=== PATIENT | female | born 1935 | race Caucasian/White ===

== ENCOUNTER 2018-08-17 07:48 | Inpatient (IN) | payer MEDICARE, BC ==
[~2018-08-17 07:48] MED LIST: CEFAZOLIN 2 GM/50 ML (PMX) 50 ML IVPB; LACTATED RINGER'S 1,000 ML IV*; TRANEXAMIC ACID 1,000 MG in DEXTROSE 5% 100 ML IVPB
[2018-08-17] MEDS ORDERED: PROPOFOL 20 ML (07:52)
[2018-08-17] MEDS ORDERED: CEFAZOLIN 1 GM INJ (07:52)
[2018-08-17] MEDS ORDERED: ROCURONIUM 50 MG INJ (07:52)
[2018-08-17] MEDS ORDERED: FENTAnyl 50 MCG/ML VIAL (07:53)
[2018-08-17] MEDS ORDERED: MIDAZOLAM 1 MG/ML 2 ML INJ (07:53)
[2018-08-17] MEDS ORDERED: ROPIVACAINE 0.5 % 30 ML VIAL (07:53)
[2018-08-17] MEDS ORDERED: ONDANSETRON 4 MG INJ (07:56)
[2018-08-17] MEDS ORDERED: ACETAMINOPHEN 1000MG/100ML IV 100 ML (07:56)
[2018-08-17] MEDS ORDERED: DEXAMETHASONE 4 MG/ML 1 ML INJ (07:56)
[2018-08-17] MEDS ORDERED: METOCLOPRAMIDE 10 MG INJ (07:56)
[2018-08-17] MEDS: DEXAMETHASONE 1 MG TAB PO (08:36)
[2018-08-17] MEDS ORDERED: THROMBIN 5000 UNIT VIAL (09:09)
[2018-08-17] MEDS ORDERED: CA CHLORIDE 10% 10 ML SYRINGE (09:09)
[2018-08-17] MEDS ORDERED: BUPIVACAINE 0.5%/EPI (SDV) 30 ML INJ (09:11)
[2018-08-17] MEDS ORDERED: PHENYLephrine (100 MCG/ML) 5ML SYG ×2 (10:11→11:29)
[2018-08-17] MEDS ORDERED: LABETALOL HCL 20MG INJ (10:20)
[2018-08-17] MEDS ORDERED: NEOSTIGMINE 3 MG/3 ML SYRINGE (10:47)
[2018-08-17] MEDS ORDERED: GLYCOPYRROLATE 0.4 MG INJ (10:47)
[2018-08-17] MEDS ORDERED: FENTAnyl 50 MCG/ML VIAL IV ×2 (11:00)
[2018-08-17] MEDS ORDERED: METOCLOPRAMIDE 10 MG INJ IV (11:00)
[2018-08-17] MEDS ORDERED: OXYCODONE/ACETAMINOPHEN (5/325) TAB PO (11:00)
[2018-08-17] MEDS ORDERED: HYDROmorphONE 1 MG/5 ML IV SYRINGE IV ×2 (11:00)
[2018-08-17] MEDS ORDERED: hydrALAzine 20 MG INJ IV (11:00)
[2018-08-17] MEDS ORDERED: MEPERIDINE 25 MG INJ IV (11:00)
[2018-08-17] MEDS ORDERED: DIPHENHYDRAMINE 50 MG INJ IV ×2 (11:00→11:30)
[2018-08-17] MEDS ORDERED: LABETALOL HCL 20MG INJ IV (11:00)
[2018-08-17] MEDS ORDERED: EPHEDrine SULFATE 50 MG/5 ML SYG IV (11:00)
[2018-08-17] MEDS ORDERED: ONDANSETRON 4 MG INJ IV ×2 (11:00→11:30)
[2018-08-17] MEDS: BUPIVACAINE 0.5% (SDV) 30 ML, EPINEPHrine 0.3 MG, KETOROLAC 30 MG, CLONIDINE 100 MCG, S... IRR (11:10)
[2018-08-17] MEDS: POLYMYXIN/BACITRACIN 1L IRRIG IRR (11:10)
[2018-08-17] MEDS ORDERED: KETOROLAC 15 MG INJ IV (11:30)
[2018-08-17] MEDS ORDERED: ACETAMINOPHEN 500 MG TAB PO ×2 (11:30)
[2018-08-17] MEDS ORDERED: MAGNESIUM HYDROXIDE 30ML CUP PO (11:30)
[2018-08-17] MEDS: TRANEXAMIC ACID 1,000 MG in DEXTROSE 5% 100 ML IV (12:37)
[2018-08-17] MEDS: DEXAMETHASONE 2 MG TAB PO ×2 (14:00→17:50)
[2018-08-17] MEDS: CEFAZOLIN 1 GM/50 ML (PMX) 50 ML IVPB (17:50)
[2018-08-17] MEDS: APIXABAN 5 MG TABLET PO (20:54)
[2018-08-17] MEDS: METOPROLOL (XL) 25 MG TAB PO (20:55)
[2018-08-17] MEDS: MIRTAZAPINE 15 MG TAB PO (20:55)
[2018-08-17] MEDS: PANTOPRAZOLE (EC) 40 MG TAB PO (20:55)
[2018-08-17] MEDS: RANITIDINE 150 MG TAB PO (20:55)
[2018-08-17] MEDS: SENNA/DOCUSATE NA (8.6MG/50MG) TAB PO (20:55)
[2018-08-17] MEDS: CEPASTAT LOZENGE MT (20:56)
[2018-08-17] MEDS: [UNRECOGNIZED DRUG - REMARK] XX (21:00)
[2018-08-18] MEDS: CEFAZOLIN 1 GM/50 ML (PMX) 50 ML IVPB ×2 (02:05→10:40)
[2018-08-18] MEDS: OXYCODONE/ACETAMINOPHEN (5/325) TAB PO (04:34)
[2018-08-18] MEDS: DEXAMETHASONE 2 MG TAB PO ×2 (06:00)
[2018-08-18] MEDS: LEVOTHYROXINE 125 MCG TAB PO (06:18)
[2018-08-18] MEDS ORDERED: NON-FORMULARY/PATIENT OWN MED (Naloxegol Oxalate (Movantik) 25 MG) PO (07:00)
[2018-08-18] MEDS ORDERED: NON-FORMULARY/PATIENT OWN MED (Esomeprazole Mag Trihydrate (Nexium) 40 MG) PO (09:00)
[2018-08-18] MEDS: APIXABAN 5 MG TABLET PO (09:27)
[2018-08-18] MEDS: ASPIRIN 81 MG TAB PO (09:27)
[2018-08-18] MEDS: SENNA/DOCUSATE NA (8.6MG/50MG) TAB PO (09:27)
[2018-08-18] MEDS: METOPROLOL (XL) 25 MG TAB PO (09:27)
[2018-08-18] MEDS: PANTOPRAZOLE (EC) 40 MG TAB PO (09:27)
== END 2018-08-18 13:13 | disposition home or self-care (01) | DRG 483 ==
LOC: REC 07:48 → MS1 13:41
PROC: 0RRK0J6 Replacement of Left Shoulder Joint with Synthetic Substitute, Humeral Surface, Open Approach (ICD-10-PCS; principal; 2018-08-17 09:30)
DX: M19.212 Secondary osteoarthritis, left shoulder (principal); M75.102 Unspecified rotator cuff tear or rupture of left shoulder, not specified as traumatic; E03.9 Hypothyroidism, unspecified
CPT/HCPCS: 73030; 86999; 88304; 88311; 97166

== ENCOUNTER 2018-12-08 14:58 | Inpatient (IN) | payer MEDICARE, BC ==
[2018-12-08] MEDS: SOD CHLORIDE 0.9% 1,000 ML IV (18:42)
[2018-12-08] MEDS: KETOROLAC 15 MG INJ IV (18:42)
[2018-12-08 18:49] LABS: ADD MAN DIFF? NO
[2018-12-08 18:52] LABS: WHITE BLOOD COUNT 10.5 10^3/ul (4.8-10.8)
[2018-12-08 18:52] LABS: ABNORMAL IP MESSAGE 1; BASOPHILS % 0.3 % (0.0-2.0); EOSINOPHILS % 0.1 % (0.0-7.0); HEMATOCRIT 35.6 % (37.0-47.0); HEMOGLOBIN 12.3 g/dl (12.0-16.0); LYMPHOCYTES # 0.2 10^3/ul (0.8-2.9); MEAN CORPUSCULAR HEMOGLOBIN 32.1 pg (29.0-33.0); MEAN CORPUSCULAR HGB CONC 34.6 g/dl (32.0-37.0); MEAN PLATELET VOLUME 10.5 fl (7.4-10.4); MONOCYTE # 0.8 10^3/ul (0.3-0.9); MONOCYTES % 7.8 % (0.0-11.0); NEUTROPHIL # 9.3 10^3/ul (1.6-7.5); NEUTROPHILS % 89.3 % (39.0-77.0); PLATELET COUNT 146 10^3/UL (140-415); RED BLOOD COUNT 3.83 10^6/ul (4.20-5.40); RED CELL DISTRIBUTION WIDTH 13.4 % (11.5-14.5)
[2018-12-08 19:09] LABS: INR 1.28; PROTIME 16.1 Sec (11.9-14.9); PT RATIO 1.3
[2018-12-08 19:10] LABS: PARTIAL THROMBOPLASTIN TIME 36.5 Sec (23.0-35.0)
[2018-12-08 19:13] LABS: ALANINE AMINOTRANSFERASE 41 IU/L (13-69); ALBUMIN 4.5 g/dl (3.3-4.9); ALBUMIN/GLOBULIN RATIO 1.66; ALKALINE PHOSPHATASE 174 IU/L (42-121); ANION GAP 8 (5-13); ASPARTATE AMINO TRANSFERASE 65 IU/L (15-46); BILIRUBIN,INDIRECT 1.5 mg/dl (0-1.1); BILIRUBIN,TOTAL 1.5 mg/dl (0.2-1.3); BLOOD UREA NITROGEN 17 mg/dl (7-20); CALCIUM 9.9 mg/dl (8.4-10.2); CARBON DIOXIDE 26 mmol/L (21-31); CHLORIDE 89 mmol/L (97-110); CREATININE 0.68 mg/dl (0.44-1.00); GLUCOSE 115 mg/dl (70-220); LIPASE 51 U/L (23-300); POTASSIUM 4.6 mmol/L (3.5-5.1); SODIUM 123 mmol/L (135-144); TOTAL PROTEIN 7.2 g/dl (6.1-8.1)
[2018-12-08 19:13] LABS: CREATINE KINASE 237 IU/L (23-200)
[2018-12-08 19:24] LABS: TROPONIN-I < 0.012 ng/ml (0.000-0.120)
[2018-12-08 19:48] LABS: ADD UMIC YES; UR ASCORBIC ACID NEGATIVE (NEGATIVE); UR BILIRUBIN (Dip) NEGATIVE (NEGATIVE); UR BLOOD (Dip) 1+ mg/dL (NEGATIVE); UR CLARITY CLEAR (CLEAR); UR COLOR YELLOW (YELLOW); UR GLUCOSE (Dip) NEGATIVE (NEGATIVE); UR KETONES (Dip) TRACE mg/dL (NEGATIVE); UR LEUKOCYTE ESTERASE (Dip) NEGATIVE Leu/ul (NEGATIVE); UR NITRITE (Dip) NEGATIVE (NEGATIVE); UR RBC 6 /HPF (0-5); UR SPECIFIC GRAVITY (Dip) 1.012 (1.003-1.030); UR TOTAL PROTEIN (Dip) NEGATIVE (NEGATIVE); UR UROBILINOGEN (Dip) NEGATIVE (NEGATIVE); UR WBC 0 /HPF (0-5)
[2018-12-08] MEDS ORDERED: ONDANSETRON 4 MG INJ IV (22:00)
[2018-12-08] MEDS ORDERED: ACETAMINOPHEN 500 MG TAB PO (22:00)
[2018-12-09 05:25] LABS: ADD MAN DIFF? NO
[2018-12-09 05:27] LABS: ABNORMAL IP MESSAGE 1; BASOPHILS % 0.3 % (0.0-2.0); EOSINOPHILS % 0.6 % (0.0-7.0); HEMATOCRIT 31.1 % (37.0-47.0); HEMOGLOBIN 10.9 g/dl (12.0-16.0); LYMPHOCYTES # 0.3 10^3/ul (0.8-2.9); LYMPHOCYTES % 4.4 % (15.0-51.0); MEAN CORPUSCULAR HEMOGLOBIN 32.5 pg (29.0-33.0); MEAN CORPUSCULAR VOLUME 92.8 fl (82.0-101.0); MEAN PLATELET VOLUME 11.7 fl (7.4-10.4); MONOCYTE # 0.7 10^3/ul (0.3-0.9); MONOCYTES % 9.7 % (0.0-11.0); NEUTROPHIL # 5.9 10^3/ul (1.6-7.5); NEUTROPHILS % 84.7 % (39.0-77.0); PLATELET COUNT 115 10^3/UL (140-415); RED BLOOD COUNT 3.35 10^6/ul (4.20-5.40); RED CELL DISTRIBUTION WIDTH 13.3 % (11.5-14.5)
[2018-12-09 05:29] LABS: POSITIVE DIFF @See below
[2018-12-09 06:04] LABS: ALANINE AMINOTRANSFERASE 26 IU/L (13-69); ALBUMIN 3.4 g/dl (3.3-4.9); ALBUMIN/GLOBULIN RATIO 1.47; ALKALINE PHOSPHATASE 126 IU/L (42-121); ANION GAP 7 (5-13); ASPARTATE AMINO TRANSFERASE 47 IU/L (15-46); BILIRUBIN,INDIRECT 1.3 mg/dl (0-1.1); BILIRUBIN,TOTAL 1.3 mg/dl (0.2-1.3); BLOOD UREA NITROGEN 21 mg/dl (7-20); CALCIUM 9.2 mg/dl (8.4-10.2); CARBON DIOXIDE 27 mmol/L (21-31); CHLORIDE 93 mmol/L (97-110); CREATININE 0.88 mg/dl (0.44-1.00); GLUCOSE 82 mg/dl (70-220); POTASSIUM 4.6 mmol/L (3.5-5.1); SODIUM 127 mmol/L (135-144); TOTAL PROTEIN 5.7 g/dl (6.1-8.1)
[2018-12-09] MEDS: LEVOTHYROXINE 125 MCG TAB PO (06:08)
[2018-12-09 06:44] LABS: THYROID STIMULATING HORMONE < 0.015 MIU/L (0.465-4.680)
[2018-12-09] MEDS: POLYETHYLENE GLYCOL 17 GM PACKET PO (09:00)
[2018-12-09] MEDS: MULTIVITAMINS THERAPEUTIC TAB PO (09:08)
[2018-12-09] MEDS: APIXABAN 5 MG TABLET PO ×2 (09:08→20:46)
[2018-12-09] MEDS: PANTOPRAZOLE (EC) 40 MG TAB PO (09:08)
[2018-12-09] MEDS: CHOLECALCIFEROL 1,000 UNIT TAB PO (09:08)
[2018-12-09] MEDS: DOCUSATE SODIUM 100 MG CAP PO ×2 (09:08→20:44)
[2018-12-09] MEDS: METOPROLOL (XL) 25 MG TAB PO ×2 (09:09→20:46)
[2018-12-09] MEDS: CYANOCOBALAMIN 500 MCG TAB PO (09:54)
[2018-12-09] MEDS: SOD CHLORIDE 0.9% 1,000 ML IV (15:50)
[2018-12-09] MEDS: MIRTAZAPINE 15 MG TAB PO (20:44)
[2018-12-10] MEDS: HYDROCODONE/APAP (5/325) TAB PO ×2 (01:50→09:53)
[2018-12-10] MEDS: SOD CHLORIDE 0.9% 1,000 ML IV ×2 (04:48→10:00)
[2018-12-10 05:09] LABS: ADD MAN DIFF? NO
[2018-12-10 05:20] LABS: WHITE BLOOD COUNT 7.8 10^3/ul (4.8-10.8)
[2018-12-10 05:20] LABS: ABNORMAL IP MESSAGE 1; BASOPHILS % 0.4 % (0.0-2.0); EOSINOPHILS # 0.1 10^3/ul (0.0-0.5); EOSINOPHILS % 1.4 % (0.0-7.0); HEMOGLOBIN 10.4 g/dl (12.0-16.0); LYMPHOCYTES # 0.2 10^3/ul (0.8-2.9); LYMPHOCYTES % 3.1 % (15.0-51.0); MEAN CORPUSCULAR HEMOGLOBIN 32.5 pg (29.0-33.0); MEAN CORPUSCULAR HGB CONC 34.7 g/dl (32.0-37.0); MEAN CORPUSCULAR VOLUME 93.8 fl (82.0-101.0); MONOCYTES % 12.4 % (0.0-11.0); NEUTROPHIL # 6.4 10^3/ul (1.6-7.5); NEUTROPHILS % 82.3 % (39.0-77.0); PLATELET COUNT 106 10^3/UL (140-415); RED CELL DISTRIBUTION WIDTH 13.1 % (11.5-14.5)
[2018-12-10 05:22] LABS: POSITIVE DIFF @See below
[2018-12-10 05:40] LABS: ANION GAP 4 (5-13); BLOOD UREA NITROGEN 16 mg/dl (7-20); CALCIUM 8.8 mg/dl (8.4-10.2); CARBON DIOXIDE 27 mmol/L (21-31); CHLORIDE 95 mmol/L (97-110); CREATININE 0.79 mg/dl (0.44-1.00); GLUCOSE 99 mg/dl (70-220); POTASSIUM 4.2 mmol/L (3.5-5.1); SODIUM 126 mmol/L (135-144)
[2018-12-10] MEDS: LEVOTHYROXINE 125 MCG TAB PO (06:13)
[2018-12-10 06:52] LABS: ADD UMIC YES; UR ASCORBIC ACID NEGATIVE (NEGATIVE); UR BILIRUBIN (Dip) NEGATIVE (NEGATIVE); UR BLOOD (Dip) 1+ mg/dL (NEGATIVE); UR CLARITY CLEAR (CLEAR); UR COLOR YELLOW (YELLOW); UR GLUCOSE (Dip) NEGATIVE (NEGATIVE); UR KETONES (Dip) NEGATIVE (NEGATIVE); UR LEUKOCYTE ESTERASE (Dip) NEGATIVE Leu/ul (NEGATIVE); UR NITRITE (Dip) NEGATIVE (NEGATIVE); UR RBC 1 /HPF (0-5); UR SPECIFIC GRAVITY (Dip) 1.004 (1.003-1.030); UR TOTAL PROTEIN (Dip) NEGATIVE (NEGATIVE); UR UROBILINOGEN (Dip) NEGATIVE (NEGATIVE); UR WBC 2 /HPF (0-5)
[2018-12-10 07:42] LABS: SODIUM,URINE RANDOM 24 mmol/L (30-90)
[2018-12-10 08:39] LABS: FREE T4 (FREE THYROXINE) 1.47 ng/dl (0.85-1.93)
[2018-12-10 08:44] LABS: THYROID STIMULATING HORMONE < 0.015 MIU/L (0.465-4.680)
[2018-12-10] MEDS: CYANOCOBALAMIN 500 MCG TAB PO (08:58)
[2018-12-10] MEDS: DOCUSATE SODIUM 100 MG CAP PO (08:58)
[2018-12-10] MEDS: CHOLECALCIFEROL 1,000 UNIT TAB PO (08:58)
[2018-12-10] MEDS: PANTOPRAZOLE (EC) 40 MG TAB PO (08:59)
[2018-12-10] MEDS: APIXABAN 5 MG TABLET PO (08:59)
[2018-12-10] MEDS: MULTIVITAMINS THERAPEUTIC TAB PO (08:59)
[2018-12-10] MEDS: POLYETHYLENE GLYCOL 17 GM PACKET PO (09:00)
[2018-12-10] MEDS: METOPROLOL (XL) 25 MG TAB PO (09:00)
[2018-12-10 09:32] LABS: OSMOLALITY,URINE 188 mOsm/kg (250-1200)
[2018-12-10 09:35] LABS: OSMOLALITY 264 mOsm/kg (280-295)
== END 2018-12-10 11:45 | DRG 536 ==
LOC: E/R 14:58 → MS1 19:33
DX: S32.810A Multiple fractures of pelvis with stable disruption of pelvic ring, initial encounter for closed fracture (principal); E87.1 Hypo-osmolality and hyponatremia; W19.XXXA Unspecified fall, initial encounter; Y92.009 Unspecified place in unspecified non-institutional (private) residence as the place of occurrence of the external cause; Z79.02 Long term (current) use of antithrombotics/antiplatelets; E86.0 Dehydration; K21.9 Gastro-esophageal reflux disease without esophagitis; R00.0 Tachycardia, unspecified; E03.9 Hypothyroidism, unspecified
CPT/HCPCS: 36415; 70450; 71045; 72170; 72192; 73030; 73510; 80048; 80053; 81001; 82533; 82550; 83690; 83930; 83935; 84300; 84439; 84443; 84484; 85025; 85610; 85730; 87086; 93005; 96374; 97162; 97530; 99285-25

== ENCOUNTER 2018-12-10 11:55 | Inpatient (IN) | payer MEDICARE, BC ==
[2018-12-10] MEDS ORDERED: MAGNESIUM HYDROXIDE 30ML CUP PO (12:30)
[2018-12-10] MEDS ORDERED: ACETAMINOPHEN 325 MG TAB PO (12:30)
[2018-12-10] MEDS ORDERED: PENDING SANTYL ORDER FOR WOUND CARE XX (12:30)
[2018-12-10] MEDS ORDERED: BISACODYL 10 MG SUPP PR (12:30)
[2018-12-10] MEDS ORDERED: LACTULOSE 30ML CUP PO (12:30)
[2018-12-10] MEDS ORDERED: ONDANSETRON 4 MG INJ IV (15:00)
[2018-12-10] MEDS: HYDROCODONE/APAP (5/325) TAB PO ×2 (16:34→21:14)
[2018-12-10] MEDS: MIRTAZAPINE 15 MG TAB PO (20:20)
[2018-12-10] MEDS: DOCUSATE SODIUM 100 MG CAP PO (20:20)
[2018-12-10] MEDS: SENNA TAB PO (20:20)
[2018-12-10] MEDS: APIXABAN 5 MG TABLET PO (20:20)
[2018-12-10] MEDS: METOPROLOL (XL) 25 MG TAB PO (21:00)
[2018-12-10 23:00] LABS: ADD UMIC YES; UR ASCORBIC ACID NEGATIVE (NEGATIVE); UR BACTERIA MODERATE /HPF (NONE SEEN); UR BILIRUBIN (Dip) NEGATIVE (NEGATIVE); UR BLOOD (Dip) 1+ mg/dL (NEGATIVE); UR CLARITY CLEAR (CLEAR); UR COLOR YELLOW (YELLOW); UR GLUCOSE (Dip) NEGATIVE (NEGATIVE); UR KETONES (Dip) NEGATIVE (NEGATIVE); UR LEUKOCYTE ESTERASE (Dip) NEGATIVE Leu/ul (NEGATIVE); UR NITRITE (Dip) NEGATIVE (NEGATIVE); UR RBC 0 /HPF (0-5); UR SPECIFIC GRAVITY (Dip) 1.004 (1.003-1.030); UR TOTAL PROTEIN (Dip) NEGATIVE (NEGATIVE); UR UROBILINOGEN (Dip) NEGATIVE (NEGATIVE); UR WBC 0 /HPF (0-5)
[2018-12-11] MEDS: PANTOPRAZOLE (EC) 40 MG TAB PO (05:44)
[2018-12-11] MEDS: HYDROCODONE/APAP (5/325) TAB PO (05:44)
[2018-12-11] MEDS: LEVOTHYROXINE 125 MCG TAB PO (05:44)
[2018-12-11 07:20] LABS: ADD MAN DIFF? NO
[2018-12-11 07:24] LABS: ABNORMAL IP MESSAGE 1; BASOPHILS % 0.4 % (0.0-2.0); EOSINOPHILS # 0.2 10^3/ul (0.0-0.5); EOSINOPHILS % 2.5 % (0.0-7.0); HEMATOCRIT 32.8 % (37.0-47.0); HEMOGLOBIN 10.8 g/dl (12.0-16.0); LYMPHOCYTES # 0.2 10^3/ul (0.8-2.9); LYMPHOCYTES % 3.3 % (15.0-51.0); MEAN CORPUSCULAR HGB CONC 32.9 g/dl (32.0-37.0); MEAN PLATELET VOLUME 11.8 fl (7.4-10.4); MONOCYTES % 14.1 % (0.0-11.0); NEUTROPHIL # 5.4 10^3/ul (1.6-7.5); NEUTROPHILS % 79.1 % (39.0-77.0); PLATELET COUNT 119 10^3/UL (140-415); RED BLOOD COUNT 3.38 10^6/ul (4.20-5.40); RED CELL DISTRIBUTION WIDTH 13.2 % (11.5-14.5)
[2018-12-11 07:24] LABS: WHITE BLOOD COUNT 6.8 10^3/ul (4.8-10.8)
[2018-12-11 07:26] LABS: POSITIVE DIFF @See below
[2018-12-11 07:44] LABS: ALANINE AMINOTRANSFERASE 33 IU/L (13-69); ALBUMIN 3.3 g/dl (3.3-4.9); ALBUMIN/GLOBULIN RATIO 1.26; ALKALINE PHOSPHATASE 135 IU/L (42-121); ANION GAP 9 (5-13); ASPARTATE AMINO TRANSFERASE 28 IU/L (15-46); BILIRUBIN,INDIRECT 0.9 mg/dl (0-1.1); BILIRUBIN,TOTAL 0.9 mg/dl (0.2-1.3); BLOOD UREA NITROGEN 14 mg/dl (7-20); CALCIUM 9.2 mg/dl (8.4-10.2); CARBON DIOXIDE 25 mmol/L (21-31); CHLORIDE 99 mmol/L (97-110); CREATININE 0.74 mg/dl (0.44-1.00); GLUCOSE 82 mg/dl (70-220); POTASSIUM 4.1 mmol/L (3.5-5.1); SODIUM 133 mmol/L (135-144); TOTAL PROTEIN 5.9 g/dl (6.1-8.1)
[2018-12-11] MEDS: DOCUSATE SODIUM 100 MG CAP PO ×2 (08:50→20:35)
[2018-12-11] MEDS: MULTIVITAMINS THERAPEUTIC TAB PO (08:50)
[2018-12-11] MEDS: CHOLECALCIFEROL 1,000 UNIT TAB PO (08:50)
[2018-12-11] MEDS: CYANOCOBALAMIN 500 MCG TAB PO (08:50)
[2018-12-11] MEDS: APIXABAN 5 MG TABLET PO ×2 (08:51→20:37)
[2018-12-11] MEDS: METOPROLOL (XL) 25 MG TAB PO ×2 (08:51→20:36)
[2018-12-11] MEDS: POLYETHYLENE GLYCOL 17 GM PACKET PO (09:00)
[2018-12-11] MEDS ORDERED: MULTIVITAMINS THERAPEUTIC TAB PO (15:30)
[2018-12-11] MEDS: traMADol 50 MG TAB PO (18:12)
[2018-12-11] MEDS: SENNA TAB PO (20:35)
[2018-12-11] MEDS: MIRTAZAPINE 15 MG TAB PO (20:36)
[2018-12-12] MEDS: LEVOTHYROXINE 125 MCG TAB PO (05:53)
[2018-12-12] MEDS: PANTOPRAZOLE (EC) 40 MG TAB PO (05:53)
[2018-12-12] MEDS: CYANOCOBALAMIN 500 MCG TAB PO (08:43)
[2018-12-12] MEDS: APIXABAN 5 MG TABLET PO ×2 (08:43→20:24)
[2018-12-12] MEDS: METOPROLOL (XL) 25 MG TAB PO ×2 (08:43→21:00)
[2018-12-12] MEDS: DOCUSATE SODIUM 100 MG CAP PO ×2 (08:43→20:23)
[2018-12-12] MEDS: CHOLECALCIFEROL 1,000 UNIT TAB PO (08:44)
[2018-12-12] MEDS: MULTIVITAMINS THERAPEUTIC TAB PO (08:44)
[2018-12-12] MEDS: traMADol 50 MG TAB PO (08:44)
[2018-12-12] MEDS: POLYETHYLENE GLYCOL 17 GM PACKET PO (08:44)
[2018-12-12] MEDS: NEOMYC/POLYMYX/BACIT 30 GM OINT TOP ×2 (09:50→20:26)
[2018-12-12] MEDS: HYDROCODONE/APAP (5/325) TAB PO ×2 (13:43→22:23)
[2018-12-12] MEDS: SENNA TAB PO (20:23)
[2018-12-12] MEDS: MIRTAZAPINE 15 MG TAB PO (20:23)
[2018-12-13] MEDS: LEVOTHYROXINE 125 MCG TAB PO (06:26)
[2018-12-13] MEDS: PANTOPRAZOLE (EC) 40 MG TAB PO (06:26)
[2018-12-13 07:01] LABS: ADD MAN DIFF? NO
[2018-12-13 07:06] LABS: WHITE BLOOD COUNT 5.6 10^3/ul (4.8-10.8)
[2018-12-13 07:06] LABS: ABNORMAL IP MESSAGE 1; BASOPHIL # 0.1 10^3/ul (0.0-0.1); BASOPHILS % 0.9 % (0.0-2.0); EOSINOPHILS # 0.2 10^3/ul (0.0-0.5); EOSINOPHILS % 3.9 % (0.0-7.0); HEMATOCRIT 31.9 % (37.0-47.0); HEMOGLOBIN 10.8 g/dl (12.0-16.0); LYMPHOCYTES # 0.3 10^3/ul (0.8-2.9); MEAN CORPUSCULAR HEMOGLOBIN 32.2 pg (29.0-33.0); MEAN CORPUSCULAR HGB CONC 33.9 g/dl (32.0-37.0); MEAN CORPUSCULAR VOLUME 95.2 fl (82.0-101.0); MONOCYTE # 0.9 10^3/ul (0.3-0.9); MONOCYTES % 16.7 % (0.0-11.0); NEUTROPHIL # 4.1 10^3/ul (1.6-7.5); PLATELET COUNT 168 10^3/UL (140-415); RED BLOOD COUNT 3.35 10^6/ul (4.20-5.40); RED CELL DISTRIBUTION WIDTH 13.2 % (11.5-14.5)
[2018-12-13 07:12] LABS: POSITIVE DIFF @See below
[2018-12-13 07:31] LABS: IRON 46 ug/dl (35-150)
[2018-12-13 07:40] LABS: % IRON SATURATION 17 % SAT (22-52); TOTAL IRON BINDING CAPACITY 273 ug/dl (241-421)
[2018-12-13] MEDS: MULTIVITAMINS THERAPEUTIC TAB PO (08:21)
[2018-12-13] MEDS: NEOMYC/POLYMYX/BACIT 30 GM OINT TOP ×2 (08:21→20:48)
[2018-12-13] MEDS: CYANOCOBALAMIN 500 MCG TAB PO (08:21)
[2018-12-13] MEDS: POLYETHYLENE GLYCOL 17 GM PACKET PO (08:21)
[2018-12-13] MEDS: APIXABAN 5 MG TABLET PO ×2 (08:22→20:48)
[2018-12-13] MEDS: METOPROLOL (XL) 25 MG TAB PO ×2 (08:22→20:50)
[2018-12-13] MEDS: DOCUSATE SODIUM 100 MG CAP PO ×2 (08:23→20:48)
[2018-12-13] MEDS: traMADol 50 MG TAB PO ×2 (08:23→20:55)
[2018-12-13] MEDS: CHOLECALCIFEROL 1,000 UNIT TAB PO (08:23)
[2018-12-13 09:04] LABS: ALANINE AMINOTRANSFERASE 24 IU/L (13-69); ALBUMIN 3.2 g/dl (3.3-4.9); ALBUMIN/GLOBULIN RATIO 1.18; ALKALINE PHOSPHATASE 132 IU/L (42-121); ANION GAP 11 (5-13); ASPARTATE AMINO TRANSFERASE 26 IU/L (15-46); BILIRUBIN,INDIRECT 0.6 mg/dl (0-1.1); BILIRUBIN,TOTAL 0.6 mg/dl (0.2-1.3); BLOOD UREA NITROGEN 16 mg/dl (7-20); CALCIUM 9.3 mg/dl (8.4-10.2); CARBON DIOXIDE 23 mmol/L (21-31); CHLORIDE 101 mmol/L (97-110); CREATININE 0.74 mg/dl (0.44-1.00); GLUCOSE 107 mg/dl (70-220); MAGNESIUM 1.8 mg/dl (1.7-2.5); PHOSPHORUS 4.5 mg/dl (2.5-4.9); POTASSIUM 4.2 mmol/L (3.5-5.1); SODIUM 135 mmol/L (135-144); TOTAL PROTEIN 5.9 g/dl (6.1-8.1)
[2018-12-13] MEDS: FERROUS SULFATE (EC) 325 MG TAB PO (14:12)
[2018-12-13] MEDS: MIRTAZAPINE 15 MG TAB PO (20:48)
[2018-12-13] MEDS: SENNA TAB PO (20:48)
[2018-12-14] MEDS: PANTOPRAZOLE (EC) 40 MG TAB PO (06:05)
[2018-12-14] MEDS: LEVOTHYROXINE 125 MCG TAB PO (06:06)
[2018-12-14] MEDS: HYDROCODONE/APAP (5/325) TAB PO ×4 (08:26→21:00)
[2018-12-14] MEDS: POLYETHYLENE GLYCOL 17 GM PACKET PO (09:30)
[2018-12-14] MEDS: CYANOCOBALAMIN 500 MCG TAB PO (09:31)
[2018-12-14] MEDS: DOCUSATE SODIUM 100 MG CAP PO (09:31)
[2018-12-14] MEDS: APIXABAN 5 MG TABLET PO ×2 (09:31→21:00)
[2018-12-14] MEDS: FERROUS SULFATE (EC) 325 MG TAB PO (09:32)
[2018-12-14] MEDS: MULTIVITAMINS THERAPEUTIC TAB PO (09:32)
[2018-12-14] MEDS: METOPROLOL (XL) 25 MG TAB PO ×2 (09:32→21:00)
[2018-12-14] MEDS: CHOLECALCIFEROL 1,000 UNIT TAB PO (09:36)
[2018-12-14] MEDS: NEOMYC/POLYMYX/BACIT 30 GM OINT TOP ×2 (09:37→21:04)
[2018-12-14] MEDS: DOCUSATE SODIUM 10 MG/ML (10ML CUP) PO (20:59)
[2018-12-14] MEDS: MIRTAZAPINE 15 MG TAB PO (21:00)
[2018-12-14] MEDS: SENNA TAB PO (21:00)
[2018-12-15 02:58] LABS: ADD UMIC YES; UR ASCORBIC ACID NEGATIVE (NEGATIVE); UR BACTERIA FEW /HPF (NONE SEEN); UR BILIRUBIN (Dip) NEGATIVE (NEGATIVE); UR BLOOD (Dip) NEGATIVE (NEGATIVE); UR CLARITY CLEAR (CLEAR); UR COLOR YELLOW (YELLOW); UR GLUCOSE (Dip) NEGATIVE (NEGATIVE); UR KETONES (Dip) NEGATIVE (NEGATIVE); UR LEUKOCYTE ESTERASE (Dip) TRACE Leu/ul (NEGATIVE); UR NITRITE (Dip) NEGATIVE (NEGATIVE); UR RBC 1 /HPF (0-5); UR SPECIFIC GRAVITY (Dip) 1.012 (1.003-1.030); UR TOTAL PROTEIN (Dip) NEGATIVE (NEGATIVE); UR UROBILINOGEN (Dip) 2+ mg/dL (NEGATIVE); UR WBC 9 /HPF (0-5)
[2018-12-15] MEDS: LEVOTHYROXINE 125 MCG TAB PO (05:58)
[2018-12-15] MEDS: PANTOPRAZOLE (EC) 40 MG TAB PO (05:58)
[2018-12-15] MEDS: HYDROCODONE/APAP (5/325) TAB PO ×3 (05:59→20:33)
[2018-12-15] MEDS: NEOMYC/POLYMYX/BACIT 30 GM OINT TOP ×2 (09:44→20:33)
[2018-12-15] MEDS: POLYETHYLENE GLYCOL 17 GM PACKET PO (09:44)
[2018-12-15] MEDS: DOCUSATE SODIUM 10 MG/ML (10ML CUP) PO ×2 (09:44→20:32)
[2018-12-15] MEDS: MULTIVITAMINS THERAPEUTIC TAB PO (09:45)
[2018-12-15] MEDS: CHOLECALCIFEROL 1,000 UNIT TAB PO (09:45)
[2018-12-15] MEDS: FERROUS SULFATE (EC) 325 MG TAB PO (09:45)
[2018-12-15] MEDS: traMADol 50 MG TAB PO (09:45)
[2018-12-15] MEDS: CYANOCOBALAMIN 500 MCG TAB PO (09:45)
[2018-12-15] MEDS: APIXABAN 5 MG TABLET PO ×2 (09:46→20:32)
[2018-12-15] MEDS: METOPROLOL (XL) 25 MG TAB PO ×2 (09:46→20:37)
[2018-12-15] MEDS: LIDOCAINE 5% PATCH TD (18:06)
[2018-12-15] MEDS: MIRTAZAPINE 15 MG TAB PO (20:32)
[2018-12-15] MEDS: SENNA TAB PO (20:33)
[2018-12-16] MEDS: LEVOTHYROXINE 125 MCG TAB PO (06:12)
[2018-12-16] MEDS: PANTOPRAZOLE (EC) 40 MG TAB PO (06:12)
[2018-12-16] MEDS: HYDROCODONE/APAP (5/325) TAB PO ×2 (06:12→20:35)
[2018-12-16] MEDS: DOCUSATE SODIUM 10 MG/ML (10ML CUP) PO ×3 (09:00→20:37)
[2018-12-16] MEDS: POLYETHYLENE GLYCOL 17 GM PACKET PO (09:00)
[2018-12-16] MEDS: traMADol 50 MG TAB PO (09:07)
[2018-12-16] MEDS: CHOLECALCIFEROL 1,000 UNIT TAB PO (09:07)
[2018-12-16] MEDS: APIXABAN 5 MG TABLET PO ×2 (09:07→20:34)
[2018-12-16] MEDS: MULTIVITAMINS THERAPEUTIC TAB PO (09:07)
[2018-12-16] MEDS: METOPROLOL (XL) 25 MG TAB PO ×2 (09:08→20:35)
[2018-12-16] MEDS: CYANOCOBALAMIN 500 MCG TAB PO (09:08)
[2018-12-16] MEDS: FERROUS SULFATE (EC) 325 MG TAB PO (09:08)
[2018-12-16] MEDS: LIDOCAINE 5% PATCH TD (09:09)
[2018-12-16] MEDS: NEOMYC/POLYMYX/BACIT 30 GM OINT TOP ×2 (09:09→20:36)
[2018-12-16] MEDS ORDERED: POLYETHYLENE GLYCOL 17 GM PACKET PO (13:30)
[2018-12-16] MEDS: CIPROFLOXACIN 250 MG TAB PO (17:53)
[2018-12-16] MEDS: MIRTAZAPINE 15 MG TAB PO (20:35)
[2018-12-16] MEDS: SENNA TAB PO (20:36)
[2018-12-17] MEDS: PANTOPRAZOLE (EC) 40 MG TAB PO (05:10)
[2018-12-17] MEDS: CIPROFLOXACIN 250 MG TAB PO ×2 (05:10→17:42)
[2018-12-17] MEDS: LEVOTHYROXINE 125 MCG TAB PO (05:10)
[2018-12-17] MEDS: HYDROCODONE/APAP (5/325) TAB PO ×2 (05:13→20:36)
[2018-12-17] MEDS: DOCUSATE SODIUM 10 MG/ML (10ML CUP) PO ×2 (09:00→21:00)
[2018-12-17] MEDS: APIXABAN 5 MG TABLET PO ×2 (09:19→20:35)
[2018-12-17] MEDS: CYANOCOBALAMIN 500 MCG TAB PO (09:20)
[2018-12-17] MEDS: FERROUS SULFATE (EC) 325 MG TAB PO (09:20)
[2018-12-17] MEDS: MULTIVITAMINS THERAPEUTIC TAB PO (09:20)
[2018-12-17] MEDS: CHOLECALCIFEROL 1,000 UNIT TAB PO (09:20)
[2018-12-17] MEDS: METOPROLOL (XL) 25 MG TAB PO ×2 (09:21→20:39)
[2018-12-17] MEDS: NEOMYC/POLYMYX/BACIT 30 GM OINT TOP ×2 (09:22→20:35)
[2018-12-17] MEDS: LIDOCAINE 5% PATCH TD (09:32)
[2018-12-17] MEDS: traMADol 50 MG TAB PO (09:46)
[2018-12-17] MEDS: MIRTAZAPINE 15 MG TAB PO (20:35)
[2018-12-17] MEDS: SENNA TAB PO (21:00)
[2018-12-18] MEDS: PANTOPRAZOLE (EC) 40 MG TAB PO (06:22)
[2018-12-18] MEDS: HYDROCODONE/APAP (5/325) TAB PO ×2 (06:22→11:28)
[2018-12-18] MEDS: CIPROFLOXACIN 250 MG TAB PO ×2 (06:22→17:49)
[2018-12-18] MEDS: LEVOTHYROXINE 125 MCG TAB PO (06:22)
[2018-12-18] MEDS: DOCUSATE SODIUM 10 MG/ML (10ML CUP) PO ×2 (08:41→20:30)
[2018-12-18] MEDS: NEOMYC/POLYMYX/BACIT 30 GM OINT TOP ×2 (08:41→20:27)
[2018-12-18] MEDS: LIDOCAINE 5% PATCH TD (08:41)
[2018-12-18] MEDS: FERROUS SULFATE (EC) 325 MG TAB PO (08:42)
[2018-12-18] MEDS: MULTIVITAMINS THERAPEUTIC TAB PO (08:42)
[2018-12-18] MEDS: CHOLECALCIFEROL 1,000 UNIT TAB PO (08:42)
[2018-12-18] MEDS: METOPROLOL (XL) 25 MG TAB PO ×2 (08:43→20:27)
[2018-12-18] MEDS: CYANOCOBALAMIN 500 MCG TAB PO (08:43)
[2018-12-18] MEDS: APIXABAN 5 MG TABLET PO ×3 (08:43→20:23)
[2018-12-18] MEDS: traMADol 50 MG TAB PO (13:58)
[2018-12-18] MEDS: MIRTAZAPINE 15 MG TAB PO (20:23)
[2018-12-18] MEDS: SENNA TAB PO (20:30)
[2018-12-19] MEDS: PANTOPRAZOLE (EC) 40 MG TAB PO (06:10)
[2018-12-19] MEDS: CIPROFLOXACIN 250 MG TAB PO ×2 (06:10→17:39)
[2018-12-19] MEDS: LEVOTHYROXINE 125 MCG TAB PO (06:10)
[2018-12-19] MEDS: HYDROCODONE/APAP (5/325) TAB PO ×4 (06:15→20:39)
[2018-12-19] MEDS: METOPROLOL (XL) 25 MG TAB PO ×2 (08:43→20:40)
[2018-12-19] MEDS: CYANOCOBALAMIN 500 MCG TAB PO (08:43)
[2018-12-19] MEDS: APIXABAN 5 MG TABLET PO ×2 (08:43→20:38)
[2018-12-19] MEDS: MULTIVITAMINS THERAPEUTIC TAB PO (08:43)
[2018-12-19] MEDS: FERROUS SULFATE (EC) 325 MG TAB PO (08:43)
[2018-12-19] MEDS: DOCUSATE SODIUM 10 MG/ML (10ML CUP) PO ×2 (08:43→20:38)
[2018-12-19] MEDS: LIDOCAINE 5% PATCH TD (08:44)
[2018-12-19] MEDS: NEOMYC/POLYMYX/BACIT 30 GM OINT TOP ×2 (08:44→20:40)
[2018-12-19] MEDS: CHOLECALCIFEROL 1,000 UNIT TAB PO (10:16)
[2018-12-19] MEDS: SENNA TAB PO (20:38)
[2018-12-19] MEDS: MIRTAZAPINE 15 MG TAB PO (20:38)
[2018-12-20] MEDS: PANTOPRAZOLE (EC) 40 MG TAB PO (06:33)
[2018-12-20] MEDS: CIPROFLOXACIN 250 MG TAB PO ×2 (06:33→17:25)
[2018-12-20] MEDS: LEVOTHYROXINE 125 MCG TAB PO (06:33)
[2018-12-20] MEDS: HYDROCODONE/APAP (5/325) TAB PO ×2 (06:40→21:20)
[2018-12-20] MEDS: CHOLECALCIFEROL 1,000 UNIT TAB PO (08:30)
[2018-12-20] MEDS: LIDOCAINE 5% PATCH TD (08:30)
[2018-12-20] MEDS: METOPROLOL (XL) 25 MG TAB PO ×2 (08:30→21:19)
[2018-12-20] MEDS: CYANOCOBALAMIN 500 MCG TAB PO (08:30)
[2018-12-20] MEDS: DOCUSATE SODIUM 10 MG/ML (10ML CUP) PO ×2 (08:30→21:00)
[2018-12-20] MEDS: NEOMYC/POLYMYX/BACIT 30 GM OINT TOP ×2 (08:30→21:26)
[2018-12-20] MEDS: MULTIVITAMINS THERAPEUTIC TAB PO (08:30)
[2018-12-20] MEDS: APIXABAN 5 MG TABLET PO ×2 (08:31→21:19)
[2018-12-20] MEDS: FERROUS SULFATE (EC) 325 MG TAB PO (08:32)
[2018-12-20] MEDS: SENNA TAB PO (21:00)
[2018-12-20] MEDS: MIRTAZAPINE 15 MG TAB PO (21:19)
[2018-12-21] MEDS: CIPROFLOXACIN 250 MG TAB PO ×2 (06:37→17:36)
[2018-12-21] MEDS: LEVOTHYROXINE 125 MCG TAB PO (06:37)
[2018-12-21] MEDS: PANTOPRAZOLE (EC) 40 MG TAB PO (06:37)
[2018-12-21 07:21] LABS: ADD MAN DIFF? NO
[2018-12-21 07:28] LABS: ABNORMAL IP MESSAGE 1; BASOPHIL # 0.1 10^3/ul (0.0-0.1); EOSINOPHILS # 0.3 10^3/ul (0.0-0.5); EOSINOPHILS % 4.6 % (0.0-7.0); HEMOGLOBIN 11.7 g/dl (12.0-16.0); LYMPHOCYTES # 0.3 10^3/ul (0.8-2.9); LYMPHOCYTES % 5.6 % (15.0-51.0); MEAN CORPUSCULAR HGB CONC 32.5 g/dl (32.0-37.0); MEAN CORPUSCULAR VOLUME 98.4 fl (82.0-101.0); MEAN PLATELET VOLUME 10.3 fl (7.4-10.4); MONOCYTE # 0.8 10^3/ul (0.3-0.9); MONOCYTES % 13.1 % (0.0-11.0); NEUTROPHIL # 4.4 10^3/ul (1.6-7.5); NEUTROPHILS % 75.2 % (39.0-77.0); PLATELET COUNT 312 10^3/UL (140-415); RED BLOOD COUNT 3.66 10^6/ul (4.20-5.40); RED CELL DISTRIBUTION WIDTH 12.7 % (11.5-14.5)
[2018-12-21 07:28] LABS: WHITE BLOOD COUNT 5.9 10^3/ul (4.8-10.8)
[2018-12-21 07:33] LABS: POSITIVE DIFF @See below
[2018-12-21 08:03] LABS: ALANINE AMINOTRANSFERASE 12 IU/L (13-69); ALBUMIN 3.7 g/dl (3.3-4.9); ALBUMIN/GLOBULIN RATIO 1.37; ALKALINE PHOSPHATASE 210 IU/L (42-121); ANION GAP 9 (5-13); ASPARTATE AMINO TRANSFERASE 29 IU/L (15-46); BILIRUBIN,INDIRECT 0.3 mg/dl (0-1.1); BILIRUBIN,TOTAL 0.3 mg/dl (0.2-1.3); BLOOD UREA NITROGEN 23 mg/dl (7-20); CALCIUM 9.7 mg/dl (8.4-10.2); CARBON DIOXIDE 26 mmol/L (21-31); CHLORIDE 101 mmol/L (97-110); CREATININE 0.86 mg/dl (0.44-1.00); GLUCOSE 77 mg/dl (70-220); POTASSIUM 4.5 mmol/L (3.5-5.1); SODIUM 136 mmol/L (135-144); TOTAL PROTEIN 6.4 g/dl (6.1-8.1)
[2018-12-21] MEDS: CYANOCOBALAMIN 500 MCG TAB PO (09:13)
[2018-12-21] MEDS: DOCUSATE SODIUM 10 MG/ML (10ML CUP) PO (09:13)
[2018-12-21] MEDS: LIDOCAINE 5% PATCH TD (09:13)
[2018-12-21] MEDS: CHOLECALCIFEROL 1,000 UNIT TAB PO (09:13)
[2018-12-21] MEDS: APIXABAN 5 MG TABLET PO ×2 (09:14→21:18)
[2018-12-21] MEDS: MULTIVITAMINS THERAPEUTIC TAB PO (09:14)
[2018-12-21] MEDS: HYDROCODONE/APAP (5/325) TAB PO ×2 (09:14→21:17)
[2018-12-21] MEDS: METOPROLOL (XL) 25 MG TAB PO ×2 (09:14→21:19)
[2018-12-21] MEDS: NEOMYC/POLYMYX/BACIT 30 GM OINT TOP ×2 (09:15→21:19)
[2018-12-21] MEDS: FERROUS SULFATE (EC) 325 MG TAB PO (09:15)
[2018-12-21] MEDS ORDERED: DOCUSATE SODIUM 100 MG CAP PO (10:00)
[2018-12-21] MEDS: DOCUSATE SODIUM 100 MG CAP PO ×2 (10:16→21:17)
[2018-12-21] MEDS: MIRTAZAPINE 15 MG TAB PO (21:17)
[2018-12-21] MEDS: SENNA TAB PO (21:18)
[2018-12-22] MEDS: PANTOPRAZOLE (EC) 40 MG TAB PO (06:18)
[2018-12-22] MEDS: LEVOTHYROXINE 125 MCG TAB PO (06:18)
[2018-12-22] MEDS: CIPROFLOXACIN 250 MG TAB PO ×2 (06:18→18:00)
[2018-12-22] MEDS: HYDROCODONE/APAP (5/325) TAB PO ×2 (09:09→20:12)
[2018-12-22] MEDS: NEOMYC/POLYMYX/BACIT 30 GM OINT TOP ×2 (09:09→20:13)
[2018-12-22] MEDS: CHOLECALCIFEROL 1,000 UNIT TAB PO (09:10)
[2018-12-22] MEDS: DOCUSATE SODIUM 100 MG CAP PO ×2 (09:10→20:12)
[2018-12-22] MEDS: CYANOCOBALAMIN 500 MCG TAB PO (09:10)
[2018-12-22] MEDS: FERROUS SULFATE (EC) 325 MG TAB PO (09:10)
[2018-12-22] MEDS: APIXABAN 5 MG TABLET PO ×2 (09:11→20:11)
[2018-12-22] MEDS: MULTIVITAMINS THERAPEUTIC TAB PO (09:12)
[2018-12-22] MEDS: LIDOCAINE 5% PATCH TD (09:12)
[2018-12-22] MEDS: METOPROLOL (XL) 25 MG TAB PO ×2 (09:12→20:12)
[2018-12-22] MEDS: MIRTAZAPINE 15 MG TAB PO (20:12)
[2018-12-22] MEDS: SENNA TAB PO (20:13)
[2018-12-23] MEDS: PANTOPRAZOLE (EC) 40 MG TAB PO (06:27)
[2018-12-23] MEDS: CIPROFLOXACIN 250 MG TAB PO (06:27)
[2018-12-23] MEDS: LEVOTHYROXINE 125 MCG TAB PO (06:27)
[2018-12-23] MEDS: HYDROCODONE/APAP (5/325) TAB PO ×2 (06:33→20:32)
[2018-12-23] MEDS: DOCUSATE SODIUM 100 MG CAP PO ×2 (09:00→20:32)
[2018-12-23] MEDS: FERROUS SULFATE (EC) 325 MG TAB PO (09:23)
[2018-12-23] MEDS: CHOLECALCIFEROL 1,000 UNIT TAB PO (09:23)
[2018-12-23] MEDS: NEOMYC/POLYMYX/BACIT 30 GM OINT TOP ×2 (09:23→20:35)
[2018-12-23] MEDS: MULTIVITAMINS THERAPEUTIC TAB PO (09:23)
[2018-12-23] MEDS: APIXABAN 5 MG TABLET PO ×2 (09:24→20:35)
[2018-12-23] MEDS: LIDOCAINE 5% PATCH TD (09:24)
[2018-12-23] MEDS: CYANOCOBALAMIN 500 MCG TAB PO (09:24)
[2018-12-23] MEDS: METOPROLOL (XL) 25 MG TAB PO ×2 (09:24→20:32)
[2018-12-23] MEDS: SENNA TAB PO (20:33)
[2018-12-23] MEDS: MIRTAZAPINE 15 MG TAB PO (20:33)
[2018-12-24] MEDS: LEVOTHYROXINE 125 MCG TAB PO (06:17)
[2018-12-24] MEDS: PANTOPRAZOLE (EC) 40 MG TAB PO (06:20)
[2018-12-24] MEDS: DOCUSATE SODIUM 100 MG CAP PO ×2 (09:00→20:20)
[2018-12-24] MEDS: APIXABAN 5 MG TABLET PO ×2 (09:25→20:13)
[2018-12-24] MEDS: METOPROLOL (XL) 25 MG TAB PO ×2 (09:26→20:14)
[2018-12-24] MEDS: FERROUS SULFATE (EC) 325 MG TAB PO (09:27)
[2018-12-24] MEDS: HYDROCODONE/APAP (5/325) TAB PO ×2 (09:27→20:13)
[2018-12-24] MEDS: CYANOCOBALAMIN 500 MCG TAB PO (09:27)
[2018-12-24] MEDS: NEOMYC/POLYMYX/BACIT 30 GM OINT TOP ×2 (09:28→20:20)
[2018-12-24] MEDS: LIDOCAINE 5% PATCH TD (09:28)
[2018-12-24] MEDS: CHOLECALCIFEROL 1,000 UNIT TAB PO (09:28)
[2018-12-24] MEDS: MULTIVITAMINS THERAPEUTIC TAB PO (09:34)
[2018-12-24] MEDS: MIRTAZAPINE 15 MG TAB PO (20:13)
[2018-12-24] MEDS: SENNA TAB PO (20:20)
[2018-12-25] MEDS: LEVOTHYROXINE 125 MCG TAB PO (06:34)
[2018-12-25] MEDS: PANTOPRAZOLE (EC) 40 MG TAB PO (06:34)
[2018-12-25 07:24] LABS: ADD MAN DIFF? NO
[2018-12-25 07:30] LABS: WHITE BLOOD COUNT 5.4 10^3/ul (4.8-10.8)
[2018-12-25 07:31] LABS: ABNORMAL IP MESSAGE 1; BASOPHIL # 0.1 10^3/ul (0.0-0.1); BASOPHILS % 1.1 % (0.0-2.0); EOSINOPHILS # 0.3 10^3/ul (0.0-0.5); EOSINOPHILS % 5.4 % (0.0-7.0); HEMATOCRIT 35.2 % (37.0-47.0); HEMOGLOBIN 11.5 g/dl (12.0-16.0); LYMPHOCYTES # 0.3 10^3/ul (0.8-2.9); LYMPHOCYTES % 5.6 % (15.0-51.0); MEAN CORPUSCULAR HEMOGLOBIN 31.8 pg (29.0-33.0); MEAN CORPUSCULAR HGB CONC 32.7 g/dl (32.0-37.0); MEAN CORPUSCULAR VOLUME 97.2 fl (82.0-101.0); MEAN PLATELET VOLUME 11.4 fl (7.4-10.4); MONOCYTE # 0.8 10^3/ul (0.3-0.9); MONOCYTES % 14.3 % (0.0-11.0); NEUTROPHIL # 3.9 10^3/ul (1.6-7.5); NEUTROPHILS % 73.2 % (39.0-77.0); PLATELET COUNT 206 10^3/UL (140-415); RED BLOOD COUNT 3.62 10^6/ul (4.20-5.40); RED CELL DISTRIBUTION WIDTH 12.6 % (11.5-14.5)
[2018-12-25 07:35] LABS: POSITIVE DIFF @See below
[2018-12-25 07:48] LABS: ANION GAP 8 (5-13); BLOOD UREA NITROGEN 24 mg/dl (7-20); CALCIUM 9.7 mg/dl (8.4-10.2); CARBON DIOXIDE 27 mmol/L (21-31); CHLORIDE 99 mmol/L (97-110); CREATININE 0.83 mg/dl (0.44-1.00); GLUCOSE 73 mg/dl (70-220); POTASSIUM 5.2 mmol/L (3.5-5.1); SODIUM 134 mmol/L (135-144)
[2018-12-25] MEDS: CHOLECALCIFEROL 1,000 UNIT TAB PO (09:07)
[2018-12-25] MEDS: MULTIVITAMINS THERAPEUTIC TAB PO (09:07)
[2018-12-25] MEDS: FERROUS SULFATE (EC) 325 MG TAB PO (09:07)
[2018-12-25] MEDS: APIXABAN 5 MG TABLET PO ×2 (09:07→20:14)
[2018-12-25] MEDS: DOCUSATE SODIUM 100 MG CAP PO ×2 (09:07→20:15)
[2018-12-25] MEDS: CYANOCOBALAMIN 500 MCG TAB PO (09:07)
[2018-12-25] MEDS: METOPROLOL (XL) 25 MG TAB PO ×2 (09:08→20:14)
[2018-12-25] MEDS: LIDOCAINE 5% PATCH TD (09:09)
[2018-12-25] MEDS: NEOMYC/POLYMYX/BACIT 30 GM OINT TOP ×2 (09:10→20:16)
[2018-12-25] MEDS: HYDROCODONE/APAP (5/325) TAB PO ×2 (11:01→20:13)
[2018-12-25 13:52] LABS: POTASSIUM 4.5 mmol/L (3.5-5.1)
[2018-12-25] MEDS: MIRTAZAPINE 15 MG TAB PO (20:12)
[2018-12-25] MEDS: SENNA TAB PO (20:15)
[2018-12-26] MEDS: PANTOPRAZOLE (EC) 40 MG TAB PO (06:14)
[2018-12-26] MEDS: LEVOTHYROXINE 125 MCG TAB PO (06:14)
[2018-12-26] MEDS: HYDROCODONE/APAP (5/325) TAB PO (08:49)
[2018-12-26 08:55] LABS: ADD MAN DIFF? NO
[2018-12-26 08:59] LABS: WHITE BLOOD COUNT 4.3 10^3/ul (4.8-10.8)
[2018-12-26 08:59] LABS: ABNORMAL IP MESSAGE 1; BASOPHIL # 0.1 10^3/ul (0.0-0.1); BASOPHILS % 1.4 % (0.0-2.0); EOSINOPHILS # 0.3 10^3/ul (0.0-0.5); HEMATOCRIT 35.2 % (37.0-47.0); HEMOGLOBIN 11.7 g/dl (12.0-16.0); LYMPHOCYTES # 0.3 10^3/ul (0.8-2.9); LYMPHOCYTES % 7.2 % (15.0-51.0); MEAN CORPUSCULAR HEMOGLOBIN 31.9 pg (29.0-33.0); MEAN CORPUSCULAR HGB CONC 33.2 g/dl (32.0-37.0); MEAN CORPUSCULAR VOLUME 95.9 fl (82.0-101.0); MEAN PLATELET VOLUME 10.6 fl (7.4-10.4); MONOCYTE # 0.7 10^3/ul (0.3-0.9); NEUTROPHILS % 69.2 % (39.0-77.0); PLATELET COUNT 254 10^3/UL (140-415); RED BLOOD COUNT 3.67 10^6/ul (4.20-5.40); RED CELL DISTRIBUTION WIDTH 12.7 % (11.5-14.5)
[2018-12-26] MEDS: NEOMYC/POLYMYX/BACIT 30 GM OINT TOP (09:00)
[2018-12-26 09:01] LABS: POSITIVE DIFF @See below
[2018-12-26 09:46] LABS: ANION GAP 9 (5-13); BLOOD UREA NITROGEN 24 mg/dl (7-20); CALCIUM 9.7 mg/dl (8.4-10.2); CARBON DIOXIDE 27 mmol/L (21-31); CHLORIDE 99 mmol/L (97-110); CREATININE 0.88 mg/dl (0.44-1.00); GLUCOSE 77 mg/dl (70-220); MAGNESIUM 1.9 mg/dl (1.7-2.5); POTASSIUM 4.4 mmol/L (3.5-5.1); SODIUM 135 mmol/L (135-144)
[2018-12-26] MEDS: DOCUSATE SODIUM 100 MG CAP PO (11:12)
[2018-12-26] MEDS: FERROUS SULFATE (EC) 325 MG TAB PO (11:12)
[2018-12-26] MEDS: CHOLECALCIFEROL 1,000 UNIT TAB PO (11:13)
[2018-12-26] MEDS: CYANOCOBALAMIN 500 MCG TAB PO (11:13)
[2018-12-26] MEDS: MULTIVITAMINS THERAPEUTIC TAB PO (11:14)
[2018-12-26] MEDS: METOPROLOL (XL) 25 MG TAB PO (11:14)
[2018-12-26] MEDS: APIXABAN 5 MG TABLET PO (11:15)
[2018-12-26] MEDS: LIDOCAINE 5% PATCH TD (11:16)
== END 2018-12-26 16:15 | DRG 560 ==
LOC: VRC 11:55
DX: S32.810D Multiple fractures of pelvis with stable disruption of pelvic ring, subsequent encounter for fracture with routine healing (principal); E87.1 Hypo-osmolality and hyponatremia; F33.1 Major depressive disorder, recurrent, moderate; N39.0 Urinary tract infection, site not specified; S32.10XD Unspecified fracture of sacrum, subsequent encounter for fracture with routine healing; R52 Pain, unspecified; E86.0 Dehydration; K21.9 Gastro-esophageal reflux disease without esophagitis; E03.9 Hypothyroidism, unspecified; Z74.09 Other reduced mobility; Z91.81 History of falling; D64.9 Anemia, unspecified; Z79.02 Long term (current) use of antithrombotics/antiplatelets; R13.10 Dysphagia, unspecified; I48.91 Unspecified atrial fibrillation
CPT/HCPCS: 80048; 80053; 81001; 82728; 83540; 83735; 84100; 84132; 85025; 87081; 87086; 92526; 92610; 97110; 97116; 97150; 97163; 97166; 97530; 97535; 97542